=== PATIENT | male | born 1960 | race Caucasian/White ===

== ENCOUNTER 2025-06-11 20:54 | Observation (INO) ==
[2025-06-11] MEDS: fentaNYL 100 MCG/2 ML VIAL IV PRN (21:16)
[2025-06-11] MEDS: fentaNYL 100 MCG/2 ML VIAL IV ONE (22:46)
[2025-06-11] MEDS: LACTATED RINGERS 1,000 ML IV SCH (23:53)
[2025-06-12 00:26] LABS: Basophils # (Auto) 0.03 K/mcL (0.00-0.30); Basophils % (Auto) 0.2 % (0.0-2.0); Eosinophils # (Auto) 0 K/mcL (0.00-0.70); Eosinophils % (Auto) 0 % (0.0-7.0); Hematocrit 41.6 % (40.1-51.0); Hemoglobin 13.3 g/dL (13.7-17.5); Lymphocytes # (Auto) 0.58 K/mcL (1.50-4.80); Lymphocytes % (Auto) 3.2 % (15.5-49.0); Mean Corpuscular HGB Conc 32.0 g/dL (31.0-36.0); Monocytes # (Auto) 0.89 K/mcL (0.10-0.90); Monocytes % (Auto) 5.0 % (1.0-12.0); Neutrophils % (Auto) 91.2 % (38.0-78.0); Platelet Count 209 K/mcL (140-440); RBC 4.45 M/mcL (4.63-6.08); WBC 17.9 K/mcL (4.5-11.0)
[2025-06-12 00:33] LABS: INR 1.0 (0.9-1.1); Prothrombin Time 13.7 sec (11.9-14.5)
[2025-06-12 00:53] LABS: ALT/SGPT 12 U/L (<40); AST/SGOT 22 U/L (<40); Albumin 3.9 gm/dL (3.2-5.2); Albumin/Globulin Ratio 1.6 (1.0-2.3); Alkaline Phosphatase 61 U/L (39-117); Anion Gap 11.0 (8.0-16.0); Bilirubin,Total 0.3 mg/dL (0.1-1.0); Blood Urea Nitrogen 18 mg/dL (8-23); Calcium 8.7 mg/dL (8.6-10.4); Carbon Dioxide 24 mmol/L (22-30); Chloride 105 mmol/L (96-108); Globulin 2.5 gm/dL (2.2-3.7); Glucose 137 mg/dL (70-105); Potassium 3.5 mmol/L (3.3-5.1); Sodium 140 mmol/L (133-145)
[2025-06-12] MEDS: fentaNYL 100 MCG/2 ML VIAL IV PRN (01:15)
[2025-06-12 02:20] LABS: Bacteria,Urine Many /hpf (0); Bilirubin,Urine NEGATIVE (Negative); Color,Urine Yellow; Glucose,Urine (UA) NEGATIVE (Negative); Ketones,Urine NEGATIVE (Negative); Leukocyte Esterase,Urine TRACE /uL (Negative); PH,Urine 6.5 (5.0-9.0); Protein,Urine NEGATIVE (Negative); Specific Gravity,Urine 1.015 (1.000-1.035); Urobilinogen,Urine 0.2 mg/dL
[2025-06-12] MEDS ORDERED: BUPIVACAINE LIPOSOMAL 1.3% 10 ML VIAL IJ ONE (09:15)
[2025-06-12] MEDS ORDERED: MIDAZOLAM 2 MG/2 ML VIAL ONE (09:15)
[2025-06-12] MEDS ORDERED: BUPIVACAINE PF 0.5% 10 ML VIAL ONE (09:15)
[2025-06-12] MEDS ORDERED: FAMOTIDINE/PF 20 MG/2 ML VIAL IV ONE (09:15)
[2025-06-12] MEDS ORDERED: PROPOFOL 200 MG/20 ML VIAL IV ONE (09:15)
[2025-06-12] MEDS ORDERED: GLYCOPYRROLATE 0.2 MG/ML VIAL IV ONE (09:26)
[2025-06-12] MEDS ORDERED: LIDOCAINE 2% PF 5 ML VIAL ONE (09:26)
[2025-06-12] MEDS ORDERED: ONDANSETRON 4 MG/2 ML VIAL ONE (09:26)
[2025-06-12] MEDS ORDERED: TRANEXAMIC ACID 1,000 MG/10 ML VIAL ONE (09:26)
[2025-06-12] MEDS ORDERED: METOCLOPRAMIDE 10 MG/2 ML VIAL ONE (09:26)
[2025-06-12] MEDS ORDERED: DEXAMETHASONE 10 MG/ML VIAL ONE (09:26)
[2025-06-12] MEDS: ceFAZolin 2 GM in DEXTROSE 5% IN WATER 50 ML IV ONE ×2 (09:47→10:15)
[2025-06-12] MEDS ORDERED: VASOPRESSIN 20 UNIT/ML VIAL ONE (10:39)
[2025-06-12] MEDS ORDERED: HYDROmorphone 0.5 MG/0.5 ML SYRINGE ONE (11:07)
[2025-06-12] MEDS ORDERED: MAGNESIUM HYDROXIDE 30 ML ORAL.SUSP PO PRN (12:23)
[2025-06-12] MEDS ORDERED: FLEETS ADULT 1 DOSE ENEMA PR PRN (12:23)
[2025-06-12] MEDS ORDERED: BENZOCAINE/MENTHOL 1 LOZENGE PO PRN (12:23)
[2025-06-12] MEDS ORDERED: ONDANSETRON 4 MG/2 ML VIAL IV PRN (12:23)
[2025-06-12] MEDS ORDERED: BISACODYL 10 MG SUPP.RECT PR PRN (12:23)
[2025-06-12] MEDS ORDERED: POLYETHYLENE GLYCOL 3350 17 GM PACKET PO PRN (12:23)
[2025-06-12] MEDS ORDERED: DROPERIDOL 5 MG/2 ML VIAL IV PRN (12:52)
[2025-06-12] MEDS ORDERED: IPRATROPIUM/ALBUTEROL 3 ML AMPUL.NEB NEB PRN (12:52)
[2025-06-12] MEDS ORDERED: HYDROmorphone 0.5 MG/0.5 ML SYRINGE IV PRN (12:52)
[2025-06-12] MEDS: TRANEXAMIC ACID 1,000 MG/10 ML VIAL IV ONE (12:52)
[2025-06-12] MEDS ORDERED: fentaNYL 100 MCG/2 ML VIAL IV PRN (12:52)
[2025-06-12] MEDS: ONDANSETRON 4 MG/2 ML VIAL IV PRN (13:05)
[2025-06-12] MEDS: 0.9 % SODIUM CHLORIDE 1,000 ML IV SCH (13:40)
[2025-06-12] MEDS: CIPROFLOXACIN 400 MG/200 ML BAG IV SCH (14:22)
[2025-06-12 14:40] LABS: Basophils # (Auto) 0.02 K/mcL (0.00-0.30); Basophils % (Auto) 0.1 % (0.0-2.0); Eosinophils # (Auto) 0 K/mcL (0.00-0.70); Eosinophils % (Auto) 0 % (0.0-7.0); Hematocrit 39.5 % (40.1-51.0); Hemoglobin 12.7 g/dL (13.7-17.5); Lymphocytes # (Auto) 0.31 K/mcL (1.50-4.80); Lymphocytes % (Auto) 2.2 % (15.5-49.0); Mean Corpuscular HGB Conc 32.2 g/dL (31.0-36.0); Monocytes # (Auto) 0.52 K/mcL (0.10-0.90); Monocytes % (Auto) 3.8 % (1.0-12.0); Neutrophils % (Auto) 93.6 % (38.0-78.0); Platelet Count 187 K/mcL (140-440); RBC 4.21 M/mcL (4.63-6.08); WBC 13.8 K/mcL (4.5-11.0)
[2025-06-12] MEDS: 0.9 % SODIUM CHLORIDE 10 ML SYRINGE IV SCH (15:47)
[2025-06-12] MEDS: LACTATED RINGERS 1,000 ML IV SCH ×2 (15:47→17:26)
[2025-06-12] MEDS: cefTRIAXone 1 GM VIAL IV SCH (17:27)
[2025-06-12] MEDS: DOCUSATE SODIUM 100 MG CAPSULE PO SCH (22:11)
[2025-06-12] MEDS: ATORVASTATIN 10 MG TABLET PO SCH (22:11)
[2025-06-12] MEDS: SENNOSIDES 1 TABLET PO SCH (22:11)
[2025-06-13 06:38] LABS: Anion Gap 10.0 (8.0-16.0); Blood Urea Nitrogen 13 mg/dL (8-23); Calcium 8.6 mg/dL (8.6-10.4); Carbon Dioxide 26 mmol/L (22-30); Chloride 104 mmol/L (96-108); Glucose 102 mg/dL (70-105); Potassium 3.9 mmol/L (3.3-5.1); Sodium 140 mmol/L (133-145)
[2025-06-13 06:57] LABS: Basophils # (Auto) 0.01 K/mcL (0.00-0.30); Basophils % (Auto) 0.1 % (0.0-2.0); Eosinophils # (Auto) 0.01 K/mcL (0.00-0.70); Eosinophils % (Auto) 0.1 % (0.0-7.0); Hematocrit 38.2 % (40.1-51.0); Hemoglobin 12.4 g/dL (13.7-17.5); Lymphocytes # (Auto) 0.97 K/mcL (1.50-4.80); Lymphocytes % (Auto) 7.9 % (15.5-49.0); Mean Corpuscular HGB Conc 32.5 g/dL (31.0-36.0); Monocytes # (Auto) 1.58 K/mcL (0.10-0.90); Monocytes % (Auto) 12.8 % (1.0-12.0); Neutrophils % (Auto) 78.8 % (38.0-78.0); Platelet Count 194 K/mcL (140-440); RBC 4.11 M/mcL (4.63-6.08); WBC 12.3 K/mcL (4.5-11.0)
[2025-06-13] MEDS: KETOROLAC 15 MG/ML VIAL IV PRN (07:18)
[2025-06-13] MEDS: FINASTERIDE 5 MG TABLET PO SCH (08:26)
[2025-06-13] MEDS: VITAMIN D3 25 MCG TABLET PO SCH (08:26)
[2025-06-13] MEDS: TAMSULOSIN 0.4 MG CAPSULE PO SCH (08:26)
[2025-06-13] MEDS: SERTRALINE 100 MG TABLET PO SCH (08:26)
[2025-06-13] MEDS: SERTRALINE 50 MG TABLET PO SCH (08:26)
[2025-06-13] MEDS ORDERED: LUTEIN ZEAXANTHIN PO SCH (09:00)
[2025-06-13 11:37] VITALS: TEMP 97.4
[2025-06-13] MEDS ORDERED: FLU VACC TS2025-26(65YR UP)/PF 180 MCG/0.5 ML SYRINGE IM ONE (13:55)
[2025-06-13] MEDS: FLU VACC TS2025-26(65YR UP)/PF 180 MCG/0.5 ML SYRINGE IM ONE (14:09)
[2025-06-13 15:52] VITALS: O2SAT 94
[2025-06-13] MEDS ORDERED: CIPROFLOXACIN 500 MG TABLET PO SCH (21:00)
== END 2025-06-13 15:00 | disposition home or self-care (01) ==
LOC: ED 20:54 → MEDSUR 20:54
PROVIDERS: ADMIT Orthopaedic Surgery; ATTEND Student in an Organized Health Care Education/Training Program